=== PATIENT | male | born 1945 | race African-American/Black ===

== ENCOUNTER 2020-08-03 02:08 | Emergency (ER) | payer OTHER | END 2020-08-03 05:15 | disposition home or self-care (01) | LOC: ER1 02:08 | DX: S13.4XXA Sprain of ligaments of cervical spine, initial encounter (principal); S40.012A Contusion of left shoulder, initial encounter; Z85.46 Personal history of malignant neoplasm of prostate; V49.40XA Driver injured in collision with unspecified motor vehicles in traffic accident, initial encounter; Y92.410 Unspecified street and highway as the place of occurrence of the external cause | CPT/HCPCS: 72040; 72125; 73030; 96372; 99284; J1885 ==